=== PATIENT | male | born 1985 | race Caucasian/White ===

== ENCOUNTER 2016-11-23 09:46 | Outpatient (CLI) | payer BC ==
[~2016-11-23] VITALS: Ht 185.4 cm; Wt 136.2 kg
[2016-11-23] MEDS ORDERED: HYDR-3812 PO (10:00)
[2016-11-23] MEDS ORDERED: GABA-486 PO (10:00)
[2016-11-23] MEDS ORDERED: [UNRECOGNIZED DRUG - CODE] PO (10:00)
[2016-11-23] MEDS ORDERED: DIPH50CA75 PO (10:00)
[2016-11-23] MEDS ORDERED: NF-ESOM40C PO (10:00)
[2016-11-23 10:04] VITALS: BP 143/88
== END 2016-11-23 10:18 | disposition home or self-care (01) ==
LOC: PREOP 09:46
PROVIDERS: ATTEND Thoracic Surgery (Cardiothoracic Vascular Surgery)
DX: Z01.818 Encounter for other preprocedural examination (principal); Z11.2 Encounter for screening for other bacterial diseases; M54.16 Radiculopathy, lumbar region
CPT/HCPCS: 87081

== ENCOUNTER 2016-11-29 10:05 | Day surgery (SDC) | payer BC ==
[~2016-11-29] VITALS: Ht 185.4 cm; Wt 136.2 kg
[2016-11-29 10:04] VITALS: BP 133/82
[~2016-11-29 10:05] MED LIST: DIPH50CA75 PO; GABA-486 PO; HYDR-3812 PO; NF-ESOM40C PO; [UNRECOGNIZED DRUG - CODE] PO
[2016-11-29] MEDS ORDERED: CATHETER FLUSH 10 ML SYR IV PRN (10:30)
[2016-11-29] MEDS ORDERED: CLINDAMYCIN 600 MG/50 ML IV ONE (10:30)
[2016-11-29] MEDS ORDERED: FAMOTIDINE 20MG/2ML IV (PEPCID) ONE (10:33)
[2016-11-29] MEDS ORDERED: ONDANSETRON 4 MG/2 ML (SDV) Z0FRAN ONE (10:35)
[2016-11-29] MEDS ORDERED: MIDAZOLAM 2 MG/2 ML (VERSED) VIAL ONE (10:35)
[2016-11-29] MEDS ORDERED: proPOfol 200 MG/20 ML (DIPRIVAN) VIAL IV ONE (10:35)
[2016-11-29] MEDS ORDERED: fentaNYL INJECTION 100 MCG/2 ML AMP ONE (10:36)
[2016-11-29] MEDS: LACTATED RINGERS 1,000 ML IV PRN ×2 (10:55→12:00)
[2016-11-29] MEDS ORDERED: FAMOTIDINE 20MG/2ML IV (PEPCID) IVP ONE (11:00)
[2016-11-29] MEDS ORDERED: GENTAMICIN 40 MG/ML 2 ML INJ SDV ONE (11:16)
[2016-11-29] MEDS ORDERED: VANCOMYCIN 1000 MG/VIAL ONE (11:16)
[2016-11-29] MEDS ORDERED: BUP/EPI 0.5% 1:200,000 (SENSORCAINE) 30 ML VIAL ONE (11:16)
--- NOTE | 2016-11-29 11:18 | Progress Note-Pre Operative ---
Pre-Operative Progress Note H&P Reviewed The H&P was reviewed, patient examined and no changes noted. Date H&P Reviewed: November 29, 2016 Time H&P Reviewed: 11:18 Pre-Operative Diagnosis: lumbar radicuopahthy LILIAN SARMIENTO DO November 29, 2016 11:18
[2016-11-29] MEDS ORDERED: SUCCINYLCHOLINE INJ 100 MG/5 ML SYR ONE (11:43)
[2016-11-29] MEDS ORDERED: LACTATED RINGERS 1,000 ML IV ONE ×2 (11:43→11:56)
[2016-11-29] MEDS ORDERED: BACITRACIN 100,000 UNIT/NS 1000 ML POUR BOTTLE IR ONE ×2 (11:45)
[2016-11-29] MEDS ORDERED: LIDOCAINE PF 2% 10 ML (XYLOCAINE) AMP ONE (11:57)
[2016-11-29] MEDS ORDERED: SEVOFLURANE (ULTANE) 15 ML INHAL SOLN ONE (12:28)
[2016-11-29] MEDS ORDERED: NEO/POLY/BAC (NEOSPORIN) OINT 15 GM TUBE ONE (12:28)
[2016-11-29] MEDS ORDERED: OXYC-197 PO ×2 (12:42→14:49)
--- NOTE | 2016-11-29 12:44 | Discharge Inst-Simple/Standard ---
Discharge Inst-Standard Discharge Medications New, Converted or Re-Newed RX: RX on Chart Patient Instructions/Follow Up Plan of Care/Instructions/FU: keep incision covered clean and dry until follow up appt dont bend lift twist or reach no driving until follow up appt Activity as Tolerated: No Discharge Diet: Regular Diet Return to The [facility] For: fever chills incisional drainage ANNE-MARIE ANDERSON November 29, 2016 12:44
[2016-11-29] MEDS ORDERED: fentaNYL INJECTION 100 MCG/2 ML AMP IVP PRN (13:00)
[2016-11-29] MEDS: morphine INJ 10 MG/ML 1ML (SYR OR VIAL) IVP PRN ×2 (13:04→13:10)
[2016-11-29 13:40] VITALS: BP 153/98
[2016-11-29] MEDS ORDERED: oxyCODONE/APAP 10/325MG (PERCOCET 10) TABLET PO PRN (14:00)
[2016-11-29] MEDS ORDERED: oxyCODONE/APAP 10/325MG (PERCOCET 10) TABLET PO ONE (14:02)
[2016-11-29 14:10] VITALS: BP 147/89
[2016-11-29 15:15] VITALS: BP 155/92
[2016-11-29 15:25] VITALS: BP 155/92
--- NOTE | 2016-11-29 15:49 | Diagnostic Imaging Report ---
EXAM: Intraoperative view of the thoracic spine. INDICATION: Spinal cord stimulator performed by Dr. Tj Penaloza. FINDINGS: Twelve seconds of fluoroscopy time were provided IMPRESSION: Spinal cord stimulator projecting over the lower thoracic spine, as demonstrated on provided images. Dictated by: Dictated on workstation # [id number]
--- NOTE | 2016-11-30 05:56 | OPERATIVE REPORT ---
DATE OF SERVICE: SURGEON: Tj Penaloza DO TOOL FILER: NAVNEET El This is a medically necessary procedure. Assistance is necessary for retraction of vital neurovascular structures. Without an bus assistant, the procedure would not be possible. PREOPERATIVE DIAGNOSES: 1. Morbid obesity. 2. Lumbar radiculopathy. POSTOPERATIVE DIAGNOSES: 1. Morbid obesity. 2. Lumbar radiculopathy. PROCEDURE PERFORMED: 1. Placement of thoracic spinal cord stimulator with paddle lead via thoracic laminotomy. 2. Placement of pulse generator. 3. Complex programming. COMPLICATIONS: None. SPECIMEN SENT: None. DRAINS PLACED: None. ANESTHESIA: General endotracheal tube anesthesia with local anesthetic. HISTORY OF PRESENT ILLNESS: The patient is a very pleasant, obese, 31-year-old male that presented today after a very successful trial in which he received 35% pain relief to his back and bilateral lower extremity pain. He did wish to proceed with placement of permanent paddle lead. He understood the risks and benefits. OPERATION: The patient was identified by name on wrist band in the preoperative holding area. The operative site was signed, consent was signed. SCDs were placed. Neuro monitoring was hooked up and antibiotics were started. He was taken to operating room theater, placed under general endotracheal tube anesthesia, and transferred to the operating room table in the prone position. All bony prominences were all padded. He was prepped and draped in usual sterile fashion. Formal timeout was conducted. AP x-rays was then brought in and marked above the pedicles. My target level was T8; therefore, I made a midline thoracic incision, proceeded with bilateral subperiosteal paraspinal musculature approach to the T9-10 interlaminar space. I used a Le[place]ell rongeur and a high speed bur to drill out the intralaminar window and I gained access to the epidural space. I then placed a [employer] Penta lead in the midline position and parked it directly behind the body of T8. At this point, I anchored the lead into the thoracic fascia. I tested it with the [employer] rep and then the neuro monitoring rep and they performed a series of complex procedures to map out stimulation. We were able to achieve equal left and right lower extremity stimulation. At this point, I made a right-sided flank incision and bluntly dissected out the posterior and rear pocket. I used a passer to pass the lead from the thoracic wound to the lumbar wound. I hooked up the pulse generator final appliance and buried it in the subcutaneous tissue. I irrigated both wounds thoroughly. I checked another AP x-ray and I closed the wound in my usual layered fashion utilizing 0-Vicryl, followed by 2-0 Vicryl, followed by bernardo for skin. I applied dressings, took the patient in a supine position to the PACU where he woke up and tolerated the procedure well. I plan at this time is to discharge the patient today and he is to avoid any bending, twisting, pushing, pulling. He will keep his wound clean and dry and change his dressings daily. He was given a prescription for p.o. pain medication. I will see the patient back in 2 weeks. Job ID: [id number] DocumentID: [id number] Dictated Date: 11/29/2016 12:50:30 Director Labor Standards Date: 11/30/2016 02:47:37 Dictated By: TJ PENALOZA DO
== END 2016-11-29 15:25 | disposition home or self-care (01) ==
LOC: SDC 10:05
PROVIDERS: ATTEND Orthopaedic Surgery
DX: M54.16 Radiculopathy, lumbar region (principal); E66.01 Morbid (severe) obesity due to excess calories; Z68.39 Body mass index [BMI] 39.0-39.9, adult; E78.5 Hyperlipidemia, unspecified; F17.210 Nicotine dependence, cigarettes, uncomplicated; F25.0 Schizoaffective disorder, bipolar type; K21.9 Gastro-esophageal reflux disease without esophagitis; E11.9 Type 2 diabetes mellitus without complications; Z79.899 Other long term (current) drug therapy
CPT/HCPCS: 82962

== ENCOUNTER 2017-04-18 08:42 | Outpatient (CLI) | payer BC ==
[~2017-04-18] VITALS: Ht 185.4 cm; Wt 131.5 kg
[~2017-04-18 08:42] MED LIST changes: +OXYC-197 PO
== END 2017-04-18 08:53 ==
LOC: PREOP 08:42
PROVIDERS: ATTEND Orthopaedic Surgery
DX: Z01.818 Encounter for other preprocedural examination (principal); Z96.89 Presence of other specified functional implants

== ENCOUNTER 2017-04-25 06:14 | Day surgery (SDC) | payer BC ==
[~2017-04-25] VITALS: Ht 185.4 cm; Wt 131.5 kg
[2017-04-25] MEDS: LACTATED RINGERS 1,000 ML IV PRN ×2 (06:30→08:07)
[2017-04-25] MEDS ORDERED: CLINDAMYCIN 600 MG/4ML (CLEOCIN) VIAL ONE (06:33)
[2017-04-25] MEDS ORDERED: NS (IVPB) 50 ML ONE (06:34)
[2017-04-25] MEDS ORDERED: FAMOTIDINE 20MG/2ML IV (PEPCID) IV ONE (06:45)
[2017-04-25] MEDS ORDERED: proPOfol 200 MG/20 ML (DIPRIVAN) VIAL IV ONE (06:56)
[2017-04-25] MEDS ORDERED: SUCCINYLCHOLINE INJ 100 MG/5 ML SYR ONE (06:56)
[2017-04-25] MEDS ORDERED: LIDOCAINE PF 2% 5 ML (XYLOCAINE) VIAL ONE (06:56)
[2017-04-25] MEDS ORDERED: LACTATED RINGERS 0 ML IV ONE (06:56)
[2017-04-25] MEDS ORDERED: MIDAZOLAM 2 MG/2 ML (VERSED) VIAL ONE (06:56)
[2017-04-25] MEDS ORDERED: ROCURONIUM 50 MG/5 ML (ZEMURON) VIAL IV ONE (06:56)
[2017-04-25] MEDS ORDERED: ONDANSETRON 4 MG/2 ML (SDV) Z0FRAN ONE (06:56)
[2017-04-25] MEDS ORDERED: fentaNYL INJECTION 250 MCG/5 ML AMP ONE (06:57)
[2017-04-25] MEDS ORDERED: BUP/EPI 0.5% 1:200,000 (MARCAINE) 10ML VIAL IJ ONE (06:58)
[2017-04-25] MEDS ORDERED: VANCOMYCIN 1000 MG/VIAL ONE (06:59)
[2017-04-25] MEDS ORDERED: CLINDAMYCIN 600 MG/NS 50 ML IVPB IV ONE ×2 (07:15)
[2017-04-25 07:29] VITALS: BP 146/94
[2017-04-25] MEDS ORDERED: BACITRACIN 100,000 UNIT/NS 1000 ML POUR BOTTLE IR ONE ×2 (07:30)
[2017-04-25] MEDS ORDERED: SEVOFLURANE (ULTANE) 15 ML INHAL SOLN ONE (08:13)
[2017-04-25] MEDS ORDERED: OXYC-197 PO (08:40)
--- NOTE | 2017-04-25 08:43 | Discharge Inst-Simple/Standard ---
Discharge Inst-Standard Discharge Medications New, Converted or Re-Newed RX: RX on Chart Patient Instructions/Follow Up Plan of Care/Instructions/FU: follow up 2 weeks in clinic keep incision clean and dry Activity as Tolerated: Yes Discharge Diet: No Restrictions Return to The Hospital For: fever chills or incisional drainage ANNE-MARIE ANDERSON Apr 25, 2017 08:43
[2017-04-25] MEDS ORDERED: morphine INJ 10 MG/ML 1ML (SYR OR VIAL) IVP PRN (08:45)
[2017-04-25] MEDS ORDERED: ONDANSETRON 4 MG/2 ML (SDV) Z0FRAN IVP PRN (08:45)
[2017-04-25] MEDS ORDERED: MEPERIDINE (DEMEROL) INJ 50 MG/ML IVP PRN (08:45)
[2017-04-25] MEDS ORDERED: morphine INJ 4 MG/ML 1 ML (VIAL/SYRINGE) ONE (08:47)
[2017-04-25 09:30] VITALS: BP 125/81
[2017-04-25 10:00] VITALS: BP 146/91
[2017-04-25 10:30] VITALS: BP 146/91
--- NOTE | 2017-04-26 00:12 | OPERATIVE REPORT ---
DATE OF SERVICE: 04/25/2017 SURGEON: Dr. Tj Penaloza. PAPER AND PRINTS RESTORER: NAVNEET Villeda This is a medically necessary procedure and assistance is necessary for retraction of vital neurovascular structures. Without an anesthetic assistant, procedure would not be possible. PREOPERATIVE DIAGNOSIS: Painful deep internal hardware. POSTOPERATIVE DIAGNOSIS: Painful deep internal hardware. PROCEDURE PERFORMED: Revision of pulse generator. COMPLICATIONS: None. ESTIMATED BLOOD LOSS: Minimal. ANESTHESIA: General endotracheal tube anesthesia with local anesthetic. DRAINS PLACED: None. HISTORY OF PRESENT ILLNESS: The patient is a very pleasant 31-year-old gentleman who presented to me status post spinal cord stimulator. His right-sided flank pulse generator site was painful. On palpation, the pulse generator had migrated in a wrong orientation and was point loading his scar line. He did request revision due to this pain. He understood the risks and benefits. DESCRIPTION OF OPERATION: This patient was identified by name on wrist band in the preoperative holding area. His operative site was signed, consent was signed. SCDs were placed. Antibiotics were started. He was taken to the operating room theater, placed under general endotracheal tube anesthesia and transferred to the operating room table in the prone position. He was prepped and draped in the usual sterile fashion. A formal timeout was conducted. An incision was then made over the old scar after infiltrating the skin and soft tissue with 0.5% Marcaine with epinephrine. I then bovied down upon pulse generator and was able to remove it and disconnect it. Consideration was given to placement of a that pulse generator just proximal or just cranial to the existing incision; however, this would have placed it too high, therefore I made a decision to move the pulse generator to the contralateral left side of his low back. I had enough lead to do that. I made an incision, infiltrated the skin and soft tissue with 0.5% Marcaine with epinephrine, dissected out a pocket to accommodate the pulse generator and I used a tunneler to pass the leads from the right to the left incision. I reconnected the pulse generator and placed it into the left flank wound. I irrigated both wounds, placed 1 gram of vancomycin powder and I closed the wound in my usual layered fashion utilizing 0 Vicryl, followed by 2-0 Vicryl, followed by bernardo for skin. Please note that I tested with the [employer] rep to ensure adequate connection and there was. At this point, I placed dressings. I placed the patient in the supine position to the PACU where he woke up without incident. He tolerated the procedure well. The plan at this time is to discharge the patient today. We have given instructions to follow up with me in 2 weeks. He knows to keep his wound clean and dry and change dressings daily. Job ID: [id number] DocumentID: [id number] Dictated Date: 04/25/2017 08:41:52 Craft Superintendent Date: 04/25/2017 13:52:26 Dictated By: TJ PENALOZA DO
== END 2017-04-25 10:30 | disposition home or self-care (01) ==
LOC: SDC 06:14
PROVIDERS: ATTEND Orthopaedic Surgery
DX: T82.847A Pain due to cardiac prosthetic devices, implants and grafts, initial encounter (principal); F29 Unspecified psychosis not due to a substance or known physiological condition; F31.9 Bipolar disorder, unspecified; E11.9 Type 2 diabetes mellitus without complications; M54.9 Dorsalgia, unspecified; E66.9 Obesity, unspecified; Z79.899 Other long term (current) drug therapy; Z68.39 Body mass index [BMI] 39.0-39.9, adult
CPT/HCPCS: 82962; 87081